=== PATIENT | female | born 1995 | race Caucasian/White ===

== ENCOUNTER 2018-06-13 08:30 | Emergency (ER) | payer OTHER ==
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
[2018-06-13 09:21] VITALS: BP 119/83
== END 2018-06-13 09:21 | disposition home or self-care (01) ==
LOC: ED 08:30
DX: S10.91XA Abrasion of unspecified part of neck, initial encounter (principal); S06.0X9A Concussion with loss of consciousness of unspecified duration, initial encounter; V43.52XA Car driver injured in collision with other type car in traffic accident, initial encounter; Y92.410 Unspecified street and highway as the place of occurrence of the external cause
CPT/HCPCS: 99282